=== PATIENT | female | born 1960 | race Caucasian/White ===

== ENCOUNTER 2017-06-28 11:48 | Observation (INO) | payer BC ==
[~2017-06-28] VITALS: Ht 162.6 cm; Wt 129.5 kg
[2017-06-28] MEDS ORDERED: MAXZIDE 50 MG-71 TAB PO (13:24)
[2017-06-28] MEDS ORDERED: RT ADVAIR 128 DISKUS IH (13:26)
[2017-06-28] MEDS ORDERED: PROAIR HFA0.09 MG/AC IH (13:26)
[2017-06-28] MEDS ORDERED: ALBUTEROL0.83 MG/ML IH (13:27)
[2017-06-28] MEDS ORDERED: FLONASE NASAL S16 GM NS (13:28)
[2017-06-28] MEDS ORDERED: EYE DROPS ALLER15 ML OP (13:28)
[2017-06-28] MEDS ORDERED: CLARITIN-D 10 M1 T24 PO (13:29)
[2017-06-28] MEDS ORDERED: BENADRYL ALLERG25 M2 PO (13:30)
[2017-06-28 13:38] VITALS: BP 141/82; PULSE 98; TEMP 98.9
[2017-06-28 13:39] VITALS: BP 141/82; PULSE 98; TEMP 98.9
[2017-06-28 16:40] VITALS: BP 126/72; PULSE 87; TEMP 98.3
[2017-06-28 17:40] VITALS: BP 126/67; PULSE 85
[2017-06-28 23:26] VITALS: BP 114/58; PULSE 105; TEMP 98.3
[2017-06-29 04:31] VITALS: BP 118/63; PULSE 83; TEMP 98.2
[2017-06-29 06:24] LABS: HEMATOCRIT 40.6 % (37.0-47.0); HEMOGLOBIN 13.3 g/dl (12.5-16.0)
[2017-06-29 07:36] VITALS: BP 132/63; PULSE 94; TEMP 98.4
[2017-06-29 10:27] LABS: CREATININE, serum 0.96 mg/dL (0.52-1.25)
[2017-06-29 11:45] VITALS: BP 101/48; PULSE 84; TEMP 98.2
== END 2017-06-29 15:25 | disposition home or self-care (01) ==
LOC: SURG 11:48 → JCC 16:43
PROVIDERS: Orthopaedic Surgery; Physician Assistant
DX: T81.30XA Disruption of wound, unspecified, initial encounter (principal); I10 Essential (primary) hypertension; Z91.02 Food additives allergy status; Z91.013 Allergy to seafood; Z90.710 Acquired absence of both cervix and uterus
CPT/HCPCS: A9284; G0378; J1100; J2250; J2405; J2704; J3010; J3370; J7040

== ENCOUNTER → 2018-01-02 | Outpatient (CLI) | payer BC ==
[~2018-01-02] MED LIST: ALBUTEROL0.83 MG/ML IH; BENADRYL ALLERG25 M2 PO; CLARITIN-D 10 M1 T24 PO; EYE DROPS ALLER15 ML OP; FLONASE NASAL S16 GM NS; MAXZIDE 50 MG-71 TAB PO; PROAIR HFA0.09 MG/AC IH; RT ADVAIR 128 DISKUS IH
== END ==
LOC: COL.RAD 08:39
DX: M19.072 Primary osteoarthritis, left ankle and foot (principal); Z98.890 Other specified postprocedural states
CPT/HCPCS: A9503

== ENCOUNTER 2018-02-01 12:28 | Outpatient (CLI) | payer BC ==
[~2018-02-01] VITALS: Ht 162.6 cm; Wt 132.2 kg
[~2018-02-01 12:28] MED LIST changes: +ALBUTEROL SULFAT3 M3 IH; -ALBUTEROL0.83 MG/ML IH
[2018-02-01 13:22] VITALS: BP 126/71; PULSE 95; TEMP 98.3
[2018-02-01] MEDS ORDERED: MOBIC15 MG PO (14:09)
[2018-02-01] MEDS ORDERED: CLARITIN-D 10 M1 T24 PO (14:11)
[2018-02-01] MEDS ORDERED: NORCO 325 MG-7.1 TAB PO (14:13)
[2018-02-01] MEDS ORDERED: VANCOCIN HCL1 GM IV (14:14)
[2018-02-01] MEDS ORDERED: DOXYCYCLINE 10100 MG PO (14:15)
[2018-02-01] MEDS ORDERED: ROCEPHIN 2GM VIAL21 IJ (14:15)
== END 2018-02-01 14:15 | disposition home or self-care (01) ==
LOC: EUO 12:28
DX: M86.672 Other chronic osteomyelitis, left ankle and foot (principal); M00.9 Pyogenic arthritis, unspecified; M19.90 Unspecified osteoarthritis, unspecified site; J45.909 Unspecified asthma, uncomplicated; G43.909 Migraine, unspecified, not intractable, without status migrainosus; Z90.710 Acquired absence of both cervix and uterus; Z91.018 Allergy to other foods; Z82.5 Family history of asthma and other chronic lower respiratory diseases; Z80.9 Family history of malignant neoplasm, unspecified; Z83.3 Family history of diabetes mellitus; Z82.61 Family history of arthritis
CPT/HCPCS: C1751; C1894

== ENCOUNTER 2021-11-02 11:34 | Day surgery (SDC) | payer BC ==
[~2021-11-02] VITALS: Ht 162.7 cm; Wt 142.0 kg
[2021-11-02] VITALS (10 sets, daily range): BP systolic 97–145; BP diastolic 52–91; PULSE 73–88; TEMP 98.2
[~2021-11-02 11:34] MED LIST changes: +DOXYCYCLINE 10100 MG PO; +MOBIC 7.5MG7.5 MG PO; +NORCO 325 MG-7.1 TAB PO; +ROCEPHIN 2GM VIAL21 IJ; +VANCOCIN HCL1 GM IV
[2021-11-02 12:53] LABS: CALCIUM 9.6 mg/dL (8.4-10.2); CREATININE, serum 1.05 mg/dL (0.57-1.11); POTASSIUM 3.3 mmol/L (3.5-4.5)
[2021-11-02 12:58] LABS: PROTHROMBIN TIME 11.7 SECONDS (9.7-12.8)
[2021-11-02 13:03] LABS: HEMATOCRIT 45.4 % (37.0-47.0); HEMOGLOBIN 14.7 g/dl (12.5-16.0); MEAN CELL VOLUME 87 fl (80.0-100.0); MEAN CORPUSCULAR HEMOGLOBIN 28 pg (27-31); MEAN CORPUSCULAR HGB CONC 32 g/dl (33.0-37.0); MEAN PLATELET VOLUME 10.7 fl (7.4-10.4); PLATELET COUNT 254 K/mm3 (130-400); RED BLOOD COUNT 5.21 M/mm3 (4.10-5.30); REDCELL DISTRIBUTION WIDTH-CV 14.7 % (11.5-14.5)
[2021-11-02] MEDS ORDERED: SINGULAIR 110 MG/TAB PO (13:43)
[2021-11-02] MEDS ORDERED: ZADITOR 5 ML5 ML OP (13:44)
[2021-11-02] MEDS ORDERED: ASPIRIN E.C. 8181 MG PO (13:44)
[2021-11-02] MEDS ORDERED: ZYRTEC ALLERGY10 MG PO (13:44)
[2021-11-02] MEDS ORDERED: COREG 3.123.125 MG/T PO (13:45)
[2021-11-02] MEDS ORDERED: AMOXICILLIN 50500 MG PO (13:46)
--- NOTE | 2021-11-02 14:06 | NUR ---
See merge for all medication, assessment, intervention, and vital sign times.
--- NOTE | 2021-11-02 15:15 | NUR ---
Pt back from [employer] after right and left heart cath. Pt is alert, oriented, and appears comfortable on stretcher. nsr on monitor. TR band to rt wrist, cms intact distal. Rt femoral vein access site dressed with clean dry and intact dressing, cms intact distal. wctm. pt and updated on poc, call light in reach. lunch ordered.
--- NOTE | 2021-11-02 18:30 | NUR ---
Pt ready for discharge. I have reviewed dc/fu instructions with pt and . pt verbalizes understanding. TR band was removed, site dressed with bandaid, folded 2x2 and coban, cms intact. rt groin site remains, sore, but soft without evidence of bleeding. cms also intact distal to rt groin site. PT is steady on her feet, and is escorted to exit via wheelchair.
== END 2021-11-02 18:30 | disposition home or self-care (01) ==
LOC: COL.CAR 11:34
PROVIDERS: Internal Medicine Cardiovascular Disease
DX: R06.02 Shortness of breath (principal); R94.39 Abnormal result of other cardiovascular function study; I27.20 Pulmonary hypertension, unspecified; I05.9 Rheumatic mitral valve disease, unspecified; G47.33 Obstructive sleep apnea (adult) (pediatric)
CPT/HCPCS: C1769; C1894; J1644; J2250; J3010; Q9967